=== PATIENT | male | born 1965 | race Caucasian/White ===

== ENCOUNTER 2021-05-28 17:27 | Outpatient (CLI) | payer OTHER, SELFPAY ==
--- NOTE | ~2021-05-28 | XR_ITS ---
EXAMINATION: XR knee LT min 4V DATE: 05/28/2021 17:57 INDICATION: Left knee pain TECHNIQUE: Weight bearing anteroposterior and Michel, sunrise, and flexed lateral views of the lef t knee were obtained COMPARISON: None. FINDINGS: Severe joint space narrowing in the medial compartment of the right knee with remodeling of the artic ular cortices of the medial femoral condyle and medial tibial plateau. This results in mild genu varu s. Small marginal osteophytes with relatively preserved joint spaces in the lateral and patellofemora l compartments. No fracture. Soft tissues are unremarkable with no knee joint effusion. IMPRESSION: 1. 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 Reviewed, dictated and finalized at location A.
== END 2021-05-28 17:28 ==
PROVIDERS: PCP Family Medicine; Visit Provider Physician Assistant
DX: M25.569 Pain in unspecified knee (principal); M17.12 Unilateral primary osteoarthritis, left knee; M21.162 Varus deformity, not elsewhere classified, left knee
CPT/HCPCS: 73564

== ENCOUNTER 2021-08-12 17:58 | Emergency (ER) | payer OTHER, SELFPAY ==
[2021-08-12 18:06] VITALS: BP 157/82; PULSE 96; RESP 16; TEMP 36.3; O2SAT 98
--- NOTE | 2021-08-12 18:06 | ED.DENTAL ---
HPI - Dental/Oral General Chief complaint: Dental/Oral Stated complaint: toothache Time Seen by Provider: 08/12/21 18:06 Source: patient and RN notes reviewed Mode of arrival: ambulatory Limitations: no limitations History of Present Illness HPI Narrative: 56-year-old male presents to the [facility] with complaints of dental pain swelling to the right lower jaw. States has been there for several days. No past dental care quite a few years, patient guesses approximately 20. Patient is a smoker. Very poor dental hygiene Related Data Allergies Allergy/AdvReac Type Severity Reaction Status Date / Time No Known Allergies Allergy Verified 05/28/21 16:36 Review of Systems Review of Systems: All systems reviewed & are unremarkable except as noted in HPI and below Constitutional: Constitutional: Reports no additional constitutional complaints, Denies chills and Denies fever(s) Eyes: Eyes: Reports no additional eye complaints ENT: Reports as per HPI Comments: Dental pain Cardiovascular: Cardiovascular: Reports no additional cardiovascular complaints and Denies chest pain Respiratory: Respiratory: Reports no additional respiratory complaints Musculoskeletal: Musculoskeletal: Reports no additional musculoskeletal complaints Integumentary/Breasts: Skin/Breast: Reports system reviewed and no additional complaints, except as docu Neurologic: Reports system reviewed and no additional complaints, except as documented Psychiatric: Psychiatric: Reports no additional psychiatric complaints Allergic/Immunologic: Allergic/Immunologic: Reports no additional allergic/immunologic complaints PMFSH Surgical History Surgical History H/O arthroscopic knee surgery History of back surgery Social History Social History Smoking packs per day: 1 Smoking cigarettes per day: 20.0 Years smoked: 30 Smoking pack-years: 30.00 Smoking status: Heavy tobacco smoker Second hand tobacco smoke exposure: Yes Alcohol intake: never Substance use: current Substance use type: marijuana Other substance usage details: for pain relief Last use: 05/15/2021 Comments At the time of my signature, I reviewed and agree with the nursing past medical, surgical, social, and family history. There is no relevant family history pertinent to the patient complaint. Exam Const: General: no acute distress, alert and poor hygiene Nutritional Appearance: well nourished Orientation/consciousness: patient oriented x3 HENMT: Head: normal to inspection Ears: external ears normal, TM's normal bilaterally and EAC's normal General nose exam: Normal external nose present Teeth image: 1. Decayed tooth. Most molars are missing. Surrounding tissue red and inflamed. Pus coming from between the tooth and the gumline Neck: Neck: normal visual inspection, no lymphadenopathy and no meningeal signs Chest: Chest palpation & inspection: normal inspection of the chest Resp: Effort & Inspection: normal respiratory effort and no use of accessory muscles Auscultation: clear to auscultation bilaterally, no crackles, no rales, no rhonchi and no wheezes Cardio: Rate: regular rate Rhythm: regular rhythm Back/Spine/Pelvis: Back: no CVA tenderness Skin: General skin exam: normal color Rashes: no rashes Wounds: no wounds Neuro: General: patient oriented x3, moves all extremities, no meningeal signs and no focal motor deficits Speech: normal speech Gait exam (Neuro): Normal gait present Extrem: General: normal to inspection Psych: Appearance: grossly normal Mental Status: mental status grossly normal Affect: normal affect Attitude: cooperative Thought content: Yes Normal thought content present Course Course Emergency Course: Discharge instructions reviewed with patient, as well as provided in writing per nursing staff. The instructions also include
== END 2021-08-12 18:17 | disposition home or self-care (01) ==
PROVIDERS: Emergency Provider Nurse Practitioner; PCP Family Medicine
DX: K04.7 Periapical abscess without sinus (principal); F17.210 Nicotine dependence, cigarettes, uncomplicated
CPT/HCPCS: 99213; G0463

== ENCOUNTER 2021-12-24 11:34 | Outpatient (CLI) | payer OTHER, SELFPAY ==
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
== END 2021-12-24 11:35 ==
LOC: MICIMG 11:35
PROVIDERS: Visit Provider Family Medicine
DX: R05.9 Cough, unspecified (principal); R91.8 Other nonspecific abnormal finding of lung field
CPT/HCPCS: 71046

== ENCOUNTER 2025-01-09 12:36 | Outpatient (CLI) | payer MEDICAID, SELFPAY ==
--- NOTE | ~2025-01-09 | CT_ITS ---
CT Scan of the Chest without Contrast: Clinical Indication: Lung cancer screening, nicotine dependence Technique: Contiguous sections were acquired throughout the chest without intravenous contrast. Dose reduction technique was used on this scan by utilizing automated exposure control and iterative recon struction technique. The dose-length product (DLP) was 118.41 mGy-cm. Findings: There is no evidence of any significant mediastinal, hilar or axillary lymphadenopathy. There are mil d coronary artery calcifications. Calcified left hilar lymph nodes are present.. There is no evidence of pleural or pericardial effusion. Advanced emphysema present with mild biapical scarring. There is 3 mm apical pulmonary nodule (axial image 25). There are a few subcentimeter scattered irregular peripheral nodules in the left upper lob e, most likely benign. Images through the upper abdomen reveal no abnormalities. Impression: Lung RADS 2: Benign appearance. 12 month follow-up screening CT advised. Advanced emphysema. Reviewed, dictated and finalized at [facility]. [facility] Impression: Lung RADS 2: Benign appearance. 12 month follow-up screening CT advised. Advanced emphysema.
--- OUTSIDE RECORDS SUMMARY | 2025-01-09 14:13 | XMS_ITS | Referral Summary ---
Author Organization [facility] Address [address] [place] [address] Care Team Providers Care Water Supervisor Name Role Phone Brandi Lopez MD Primary Care Provider [phone] Source Comments [facility],non-owned Affiliates and Associated Physician Practices is amultiple site organization consisting of ambulatory clinics and hospital sitesin [place], [place] and [place]. This disclosure is being madepursuant to the Care Everywhere program and may not contain all information available regarding this patient. Last updated [email or web address] Allergies No known active allergies Medications * Be aware that medications may not be up to date on this document. Alwaysverify current medications with the patient. Medication Sig Dispensed Refills Start Date End Date Status fluticasone propionate (FLONASE) 50 MCG/ACT nasal sprayIndications:Ac yolis non-recurrent maxillary sinusitis [place] 1 [place] into each nostril 2 times daily 1 Bottle 0 08/02/2016 Active Additional Information Patient not taking.Reported on 12/30/2023 clobetasol (Temovate) 0.05 % cream APPLY TO HANDS TWICE A DAY FOR UP TO 2 WEEKS AT A TIME. 12/13/2023 Active doxycycline hyclate (Vibramycin) 100 MG capsule TAKE 1 CAPSULE BY MOUTH TWICE A DAY WITH FOOD 12/13/2023 Active terbinafine (LamISIL) 250 MG tablet TAKE ONE TABLET ONCE DAILY FOR 6 WEEKS. 12/13/2023 Active Social History Tobacco Use Types Packs/Day Years Used Date Smoking Tobacco: Every Day Tobacco Cessation:Ready to Q uit: Not Asked; Counseling Given: Not Answered Alcohol Use Standard Drinks/Week Comments Not Asked 0 (1 standard drink = 0.6 oz pur e alcohol) PHQ-2 Answer Date Recorded Patient Health Questionnaire-2 Score 0 12/30/2023 Sex and Gender Information Value Date Recorded Sex Assigned at Not on file Gender Identity Not on file Sexual Orientation Not on file Last Filed Vital Signs Vital Sign Reading Time Taken Comments Blood Pressure 110/68 08/02/2016 12:57 PM CDT Pulse 68 08/02/2016 12:57 PM CDT Temperature 36.8 C (98.2 F) 08/02/2016 12:57 PM CDT Respiratory Rate 16 08/02/2016 12:57 PM CDT Oxygen Saturation - - Inhaled Oxygen Concentration - - Weight 77.1 kg (170 lb) 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
--- OUTSIDE RECORDS SUMMARY | 2025-01-09 14:13 | XMS_ITS | Clinical Summary ---
Author Organization [facility] Address [address] [place] [address] Care Team Providers Care Litigator Name Role Phone Brandi Lopez MD Primary Care Provider [phone] Source Comments [facility],non-owned Affiliates and Associated Physician Practices is amultiple site organization consisting of ambulatory clinics and hospital sitesin [place], [place], [place] and [place]. This disclosure is being madepursuant to the Care Everywhere program and may not contain all information available regarding this patient. Last updated [facility] Allergies No known active allergies Medications * Be aware that medications may not be up to date on this document. Alwaysverify current medications with the patient. 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 Height - - Body Mass Index - - Plan of Treatment Health Maintenance Due Date Last Done Comments COLOGUARD (AGES 45-75) - COL ON CA SCREENING 1965 COLON MONITORING 1965 COLONOSCOPY - COLON CA SCREENING 1965 CT COLONOGRAPHY - COLON CA SCREENING 1965 Colorectal Cancer Screening 1965 FIT - COLON CA SCREENING 1965 FLEX SIG - COLON CA SCREENING 1965 LIPID TESTING 1965 HIV SCREENING 1980 HEPATITIS C SCREENING 07/16/1983 DTAP/TDAP/TD VACCINES (1 - Tdap) 1984 HEPATITIS B VACCINE (1 of 3 - 19+ 3-dose series) 1984 PNEUMOCOCCAL VACCINE 50+ (1 of 2 - PCV) 1984 PNEUMOCOCCAL VACCINE (1 of 2 - PCV) 1984 ZOSTER VACCINE (1 of 2) 2015 COVID-19 VACCINE ( - 2023-2 5 season) 2024 INFLUENZA VACCINE (#1) 2024 DEPRESSION SCREENING 11/15/2024 12/30/2023 HIB VACCINE Aged Out No longer eligi ble based on patient's age to complete this topic HPV VACCINE Aged Out No longer eligi ble based on patient's age to complete this topic MENINGOCOCCAL (Group B) VACCINE Aged Out No longer eligible based on patient's age to complete this topic MENINGOCOCCAL VACCINE Aged Out No nayeli michael eligible based on patient's age to complete this topic Care Teams Litigator Relationship Specialty Start Date End Date Brandi Lopez MD [address] [place] [address] PCP - General 05/26/22
--- OUTSIDE RECORDS SUMMARY | 2025-01-09 14:13 | XMS_ITS | CONTINUITY OF CARE DOCUMENT ---
Author Name judith wong Address Unknown Organization [facility] Address [address] [place] [address] Phone [phone] Care Team Providers Care Program Control Analyst Name Role Phone NADIRA BAY MD Unavailable [phone] NADIRA BAY MD Unavailable INSURANCE PROVIDERS Payer name Policy type / Coverage type Mellette red republican ID [facility] [id number]
--- OUTSIDE RECORDS SUMMARY | 2025-01-09 14:13 | XMS_ITS | Patient Health Summary ---
Author Organization [facility] [employer] Address [address] [place] [address] Care Team Providers Care Direct Chill Caster Name Role Phone Brandi Lopez MD Primary Care Provider [phone] Note from [facility],non-owned Affiliates and Associated Physician Practices is amultiple site organization consisting of ambulatory clinics and [place]in [place] and [place]. This disclosure is being madepursuant to the Care Everywhere program and may not contain all information available regarding this patient. Last updated 18.[facility] Allergies No known active allergies Medications * Be aware that medications may not be up to date on this document. Alwaysverify current medications with the patient. * fluticasone propionate (FLONASE) 50 MCG/ACT nasal spray(Started 08/02/2016) [place] 1 [place] into each nostril 2 times daily * clobetasol (Temovate) 0.05 % cream(Started 12/13/2023) APPLY TO HANDS TWICE A DAY FOR UP TO 2 WEEKS AT A TIME. * doxycycline hyclate (Vibramycin) 100 MG capsule(Started 12/13/2023) TAKE 1 CAPSULE BY MOUTH TWICE A DAY WITH FOOD * terbinafine (LamISIL) 250 MG tablet(Started 12/13/2023) TAKE ONE TABLET ONCE DAILY FOR 6 WEEKS. Social History Tobacco Use Types Packs/Day Years [...] 77.1 kg (170 lb) 12/30/2023 12:24 PM DISASTER RESPONSE DIRECTOR Height - - Body Mass Index - - Procedures * XR HAND LEFT 3VW OR MORE(Performed 12/30/2023) Performed for Bilateral hand pain * XR HAND RIGHT 3VW OR MORE(Performed 12/30/2023) Performed for Bilateral hand pain * XR WRIST RIGHT 3VW OR MORE(Performed 12/30/2023) Performed for Bilateral wrist pain * XR WRIST LEFT 3VW OR MORE(Performed 12/30/2023) Performed for Bilateral wrist pain Results * XR HAND LEFT 3VW OR MORE (12/30/2023 12:44 PM DISASTER RESPONSE DIRECTOR) Anatomical Region Laterality Modality Wrist / Hand Radiographic Steph ging 12/30/2023 2:57 PM DISASTER RESPONSE DIRECTOR Impressions 12/30/2023 9:08 PM DISASTER RESPONSE DIRECTOR IMPRESSION: 1.Right hand: Mild arthritis. 2.Left hand: Moderate to severe arthritis. 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 5.Soft tissue mass within the dorsal aspect of the wrist. Consider further characterization with cross-sectional imaging and/or ultrasound. Report dictated by George Martinez MD (sr vice president). I, Anastasiia Garcia MD have personally reviewed and interpreted this examination/study. > Interpreting Provider: Anastasiia Garcia MD on 12/30/2023 9:08 PM Narrative 12/30/2023 9:08 PM DISASTER RESPONSE DIRECTOR PROCEDURE: XR WRIST RIGHT 3VW OR MORE, XR HAND LEFT 3VW OR MORE, XR HAND RIGHT 3VW OR MORE, XR WRIST LEFT 3VW OR MORE, DATE/TIME OF EXAM: 12/30/2023 12:20 PM, LOCATION [facility] INDICATION: M25.531: Bilateral wrist pain M25.532: Bilateral wrist pain ADDITIONAL CLINICAL INFORMATION: Ordering Provider Reason For Exam: pain (accession [id number]), pain (accession [id number]), pain (accession [id number]), Pain (accession [id number]) COMPARISON: None. FINDINGS: Right hand: No acute fracture or dislocation. Mild degenerative changes are seen within the first carpometacarpal joint. There is mild narrowing of the first, third, and fourth, moderate narrowing of the fourth, and severe narrowing of the third metacarpophalangeal joints. Beaklike osteophytes noted from the third metacarpal head. There is associated subchondral sclerosis and osteophyte formation within the third metacarpophalangeal joint. There is narrowing of multiple interphalangeal joints, most pronounced within the first distal interphalangeal joint. No osseous erosive changes. Bone density and texture are normal. No soft tissue swelling. Left hand: No acute fracture or dislocation. Mild degenerative changes are seen within the first carpometacarpal joint. Beaklike osteophytes noted from the third metacarpal head. There is mild narrowing of the first and second as well as severe narrowing of the third metacarpal phalangeal joints. Associated subchondral sclerosis and osteophyte formation within the third metacarpal phalangeal joint. There is narrowing of the second distal interphalangeal joint. No osseous erosive changes. Bone density and texture are normal. No soft tissue swelling. Right wrist: No acute fracture or dislocation. A well-corticated ossific fragment within the dorsal wrist may represent a remote triquetral fracture. Widening of the scapholunate interval indicating scapholunate ligament injury associated with proximal migration of the capitate. Severe osteoarthritis changes at the radiocarpal joints with loss of joint space. 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 No osseous erosive changes. Bone density and texture are otherwise normal. A soft tissue swelling is seen along the dorsal wrist. Left wrist: No acute fracture or dislocation. Widening of the scapholunate interval indicating scapholunate ligament injury. A well-corticated lucency within the distal ulna may represent sequela of previous injury versus erosive changes. There is severe radial scaphoid, radial lunate, and ulnocarpal joint space narrowing with near txrh-mt-psgj contact and associated subchondral sclerosis. Bone density and texture are normal. No soft tissue swelling. Procedure Note Anastasiia Garcia MD - 12/30/2023 PROCEDURE: XR WRIST RIGHT 3VW OR MORE, XR HAND LEFT 3VW OR MORE, XRHAND RIGHT 3VW OR MORE, XR WRIST LEFT 3VW OR MORE, DATE/TIME OF EXAM:12/30/2023 12:20 PM, LOCATION [facility] INDICATION: M25.531: Bilateral wrist pain M25.532: Bilateral wrist pain ADDITIONAL CLINICAL INFORMATION: Ordering Provider Reason For Exam: pain (accession [id number]), pain (accession [id number]), pain (accession [id number]), Pain (accession [id number]) COMPARISON: None. FINDINGS: Right hand: No acute fracture or dislocation. Mild degenerative changes are seenwithin the first carpometacarpal joint. There is mild narrowing of the first, third, and fourth, moderate narrowing of the fourth, and severenarrowing of the third metacarpophalangeal joints. Beaklike osteophytes noted from the third metacarpal head. There is associated subchondral sclerosis and osteophyte formation within the third metacarpophalangeal joint. Thereis narrowing of multiple interphalangeal joints, most pronounced within the first distal interphalangeal joint. No osseous erosive changes. Bone density and texture are normal. No soft tissue swelling. Left hand: No acute fracture or dislocation. Mild degenerative changes are seenwithin the first carpometacarpal joint. Beaklike osteophytes noted from thethird metacarpal head. There is mild narrowing of the first and second as wellas severe narrowing of the third metacarpal phalangeal joints. Associated subchondral sclerosis and osteophyte formation within the thirdmetacarpal phalangeal joint. There is narrowing of the second distalinterphalangeal joint. No osseous erosive changes. Bone density and texture are normal.No soft tissue swelling. Right wrist: No acute fracture or dislocation. A well-corticated ossific fragmentwithin the dorsal wrist may represent a remote triquetral fracture. Widening of the scapholunate interval indicating scapholunate ligament injury associated with proximal migration of the capitate. Severeosteoarthritis changes at the radiocarpal joints with loss of joint space. 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 No osseous erosive changes. Bone density and texture are otherwise normal. A soft tissue swelling is seen along the dorsal wrist. Left wrist: No acute fracture or dislocation. Widening of the scapholunate interval indicating scapholunate ligament injury. A well-corticated lucencywithin the distal ulna may represent sequela of previous injury versus erosive changes. There is severe radial scaphoid, radial lunate, and ulnocarpal joint space narrowing with near cmjl-ob-zvxx contact and associated subchondral sclerosis. Bone density and texture are normal. No softtissue swelling. IMPRESSION: 1.Right hand: Mild arthritis. 2.Left hand: Moderate to severe arthritis. 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 5.Soft tissue mass within the dorsal aspect of the wrist. Considerfurther characterization with cross-sectional imaging and/or ultrasound. Report dictated by George Martinez MD (sr vice president). I, Anastasiia Garcia MD have personally reviewed and interpreted this examination/study. > Interpreting Provider: Anastasiia Garcia MD on 49:08 PM Du Hall MD DIAGNOSTIC IMAGING O RDERABLES * XR HAND RIGHT 3VW OR MORE (12/30/2023 12:44 PM DISASTER RESPONSE DIRECTOR) Anatomical Region Laterality Modality Wrist / Hand Radiographic Steph ging 12/30/2023 2:57 PM DISASTER RESPONSE DIRECTOR Impressions 12/30/2023 9:08 PM DISASTER RESPONSE DIRECTOR IMPRESSION: 1.Right hand: Mild arthritis. 2.Left hand: Moderate to severe arthritis. 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 5.Soft tissue mass within the dorsal aspect of the wrist. Consider further characterization with cross-sectional imaging and/or ultrasound. Report dictated by George Martinez MD (sr vice president). I, Anastasiia Garcia MD have personally reviewed and interpreted this examination/study. > Interpreting Provider: Anastasiia Garcia MD on 12/30/2023 9:08 PM Narrative 12/30/2023 9:08 PM DISASTER RESPONSE DIRECTOR PROCEDURE: XR WRIST RIGHT 3VW OR MORE, XR HAND LEFT 3VW OR MORE, XR HAND RIGHT 3VW OR MORE, XR WRIST LEFT 3VW OR MORE, DATE/TIME OF EXAM: 12/30/2023 12:20 PM, LOCATION [facility] INDICATION: M25.531: Bilateral wrist pain M25.532: Bilateral wrist pain ADDITIONAL CLINICAL INFORMATION: Ordering Provider Reason For Exam: pain (accession [id number]), pain (accession [id number]), pain (accession [id number]), Pain (accession [id number]) COMPARISON: None. FINDINGS: Right hand: No acute fracture or dislocation. Mild degenerative changes are seen within the first carpometacarpal joint. There is mild narrowing of the first, third, and fourth, moderate narrowing of the fourth, and severe narrowing of the third metacarpophalangeal joints. Beaklike osteophytes noted from the third metacarpal head. There is associated subchondral sclerosis and osteophyte formation within the third metacarpophalangeal joint. There is narrowing of multiple interphalangeal joints, most pronounced within the first distal interphalangeal joint. No osseous erosive changes. Bone density and texture are normal. No soft tissue swelling. Left hand: No acute fracture or dislocation. Mild degenerative changes are seen within the first carpometacarpal joint. Beaklike osteophytes noted from the third metacarpal head. There is mild narrowing of the first and second as well as severe narrowing of the third metacarpal phalangeal joints. Associated subchondral sclerosis and osteophyte formation within the third metacarpal phalangeal joint. There is narrowing of the second distal interphalangeal joint. No osseous erosive changes. Bone density and texture are normal. No soft tissue swelling. Right wrist: No acute fracture or dislocation. A well-corticated ossific fragment within the dorsal wrist may represent a remote triquetral fracture. Widening of the scapholunate interval indicating scapholunate ligament injury associated with proximal migration of the capitate. Severe osteoarthritis changes at the radiocarpal joints with loss of joint space. 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 No osseous erosive changes. Bone density and texture are otherwise normal. A soft tissue swelling is seen along the dorsal wrist. Left wrist: No acute fracture or dislocation. Widening of the scapholunate interval indicating scapholunate ligament injury. A well-corticated lucency within the distal ulna may represent sequela of previous injury versus erosive changes. There is severe radial scaphoid, radial lunate, and ulnocarpal joint space narrowing with near onmt-pe-ovvz contact and associated subchondral sclerosis. Bone density and texture are normal. No soft tissue swelling. Procedure Note Anastasiia Garcia MD - 12/30/2023 PROCEDURE: XR WRIST RIGHT 3VW OR MORE, XR HAND LEFT 3VW OR MORE, XRHAND RIGHT 3VW OR MORE, XR WRIST LEFT 3VW OR MORE, DATE/TIME OF EXAM:12/30/2023 12:20 PM, LOCATION [facility] INDICATION: M25.531: Bilateral wrist pain M25.532: Bilateral wrist pain ADDITIONAL CLINICAL INFORMATION: Ordering Provider Reason For Exam: pain (accession [id number]), pain (accession [id number]), pain (accession [id number]), Pain (accession [id number]) COMPARISON: None. FINDINGS: Right hand: No acute fracture or dislocation. Mild degenerative changes are seenwithin the first carpometacarpal joint. There is mild narrowing of the first, third, and fourth, moderate narrowing of the fourth, and severenarrowing of the third metacarpophalangeal joints. Beaklike osteophytes noted from the third metacarpal head. There is associated subchondral sclerosis and osteophyte formation within the third metacarpophalangeal joint. Thereis narrowing of multiple interphalangeal joints, most pronounced within the first distal interphalangeal joint. No osseous erosive changes. Bone density and texture are normal. No soft tissue swelling. Left hand: No acute fracture or dislocation. Mild degenerative changes are seenwithin the first carpometacarpal joint. Beaklike osteophytes noted from thethird metacarpal head. There is mild narrowing of the first and second as wellas severe narrowing of the third metacarpal phalangeal joints. Associated subchondral sclerosis and osteophyte formation within the thirdmetacarpal phalangeal joint. There is narrowing of the second distalinterphalangeal joint. No osseous erosive changes. Bone density and texture are normal.No soft tissue swelling. Right wrist: No acute fracture or dislocation. A well-corticated ossific fragmentwithin the dorsal wrist may represent a remote triquetral fracture. Widening of the scapholunate interval indicating scapholunate ligament injury associated with proximal migration of the capitate. Severeosteoarthritis changes at the radiocarpal joints with loss of joint space. 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 No osseous erosive changes. Bone density and texture are otherwise normal. A soft tissue swelling is seen along the dorsal wrist. Left wrist: No acute fracture or dislocation. Widening of the scapholunate interval indicating scapholunate ligament injury. A well-corticated lucencywithin the distal ulna may represent sequela of previous injury versus erosive changes. There is severe radial scaphoid, radial lunate, and ulnocarpal joint space narrowing with near xqwh-cy-nslp contact and associated subchondral sclerosis. Bone density and texture are normal. No softtissue swelling. IMPRESSION: 1.Right hand: Mild arthritis. 2.Left hand: Moderate to severe arthritis. 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 5.Soft tissue mass within the dorsal aspect of the wrist. Considerfurther characterization with cross-sectional imaging and/or ultrasound. Report dictated by George Martinez MD (sr vice president). I, Anastasiia Garcia MD have personally reviewed and interpreted this examination/study. > Interpreting Provider: Anastasiia Garcia MD on 49:08 PM Du Hall MD DIAGNOSTIC IMAGING O RDERABLES * XR WRIST RIGHT 3VW OR MORE (12/30/2023 12:19 PM DISASTER RESPONSE DIRECTOR) Anatomical Region Laterality Modality Wrist / Hand Radiographic Steph ging 12/30/2023 2:57 PM DISASTER RESPONSE DIRECTOR Impressions 12/30/2023 9:08 PM DISASTER RESPONSE DIRECTOR IMPRESSION: 1.Right hand: Mild arthritis. 2.Left hand: Moderate to severe arthritis. 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 5.Soft tissue mass within the dorsal aspect of the wrist. Consider further characterization with cross-sectional imaging and/or ultrasound. Report dictated by George Martinez MD (sr vice president). I, Anastasiia Garcia MD have personally reviewed and interpreted this examination/study. > Interpreting Provider: Anastasiia Garcia MD on 12/30/2023 9:08 PM Narrative 12/30/2023 9:08 PM DISASTER RESPONSE DIRECTOR PROCEDURE: XR WRIST RIGHT 3VW OR MORE, XR HAND LEFT 3VW OR MORE, XR HAND RIGHT 3VW OR MORE, XR WRIST LEFT 3VW OR MORE, DATE/TIME OF EXAM: 12/30/2023 12:20 PM, LOCATION [facility] INDICATION: M25.531: Bilateral wrist pain M25.532: Bilateral wrist pain ADDITIONAL CLINICAL INFORMATION: Ordering Provider Reason For Exam: pain (accession [id number]), pain (accession [id number]), pain (accession [id number]), Pain (accession [id number]) COMPARISON: None. FINDINGS: Right hand: No acute fracture or dislocation. Mild degenerative changes are seen within the first carpometacarpal joint. There is mild narrowing of the first, third, and fourth, moderate narrowing of the fourth, and severe narrowing of the third metacarpophalangeal joints. Beaklike osteophytes noted from the third metacarpal head. There is associated subchondral sclerosis and osteophyte formation within the third metacarpophalangeal joint. There is narrowing of multiple interphalangeal joints, most pronounced within the first distal interphalangeal joint. No osseous erosive changes. Bone density and texture are normal. No soft tissue swelling. Left hand: No acute fracture or dislocation. Mild degenerative changes are seen within the first carpometacarpal joint. Beaklike osteophytes noted from the third metacarpal head. There is mild narrowing of the first and second as well as severe narrowing of the third metacarpal phalangeal joints. Associated subchondral sclerosis and osteophyte formation within the third metacarpal phalangeal joint. There is narrowing of the second distal interphalangeal joint. No osseous erosive changes. Bone density and texture are normal. No soft tissue swelling. Right wrist: No acute fracture or dislocation. A well-corticated ossific fragment within the dorsal wrist may represent a remote triquetral fracture. Widening of the scapholunate interval indicating scapholunate ligament injury associated with proximal migration of the capitate. Severe osteoarthritis changes at the radiocarpal joints with loss of joint space. 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 No osseous erosive changes. Bone density and texture are otherwise normal. A soft tissue swelling is seen along the dorsal wrist. Left wrist: No acute fracture or dislocation. Widening of the scapholunate interval indicating scapholunate ligament injury. A well-corticated lucency within the distal ulna may represent sequela of previous injury versus erosive changes. There is severe radial scaphoid, radial lunate, and ulnocarpal joint space narrowing with near cppb-lw-wgti contact and associated subchondral sclerosis. Bone density and texture are normal. No soft tissue swelling. Procedure Note Anastasiia Garcia MD - 12/30/2023 PROCEDURE: XR WRIST RIGHT 3VW OR MORE, XR HAND LEFT 3VW OR MORE, XRHAND RIGHT 3VW OR MORE, XR WRIST LEFT 3VW OR MORE, DATE/TIME OF EXAM:12/30/2023 12:20 PM, LOCATION [facility] INDICATION: M25.531: Bilateral wrist pain M25.532: Bilateral wrist pain ADDITIONAL CLINICAL INFORMATION: Ordering Provider Reason For Exam: pain (accession [id number]), pain (accession [id number]), pain (accession [id number]), Pain (accession [id number]) COMPARISON: None. FINDINGS: Right hand: No acute fracture or dislocation. Mild degenerative changes are seenwithin the first carpometacarpal joint. There is mild narrowing of the first, third, and fourth, moderate narrowing of the fourth, and severenarrowing of the third metacarpophalangeal joints. Beaklike osteophytes noted from the third metacarpal head. There is associated subchondral sclerosis and osteophyte formation within the third metacarpophalangeal joint. Thereis narrowing of multiple interphalangeal joints, most pronounced within the first distal interphalangeal joint. No osseous erosive changes. Bone density and texture are normal. No soft tissue swelling. Left hand: No acute fracture or dislocation. Mild degenerative changes are seenwithin the first carpometacarpal joint. Beaklike osteophytes noted from thethird metacarpal head. There is mild narrowing of the first and second as wellas severe narrowing of the third metacarpal phalangeal joints. Associated subchondral sclerosis and osteophyte formation within the thirdmetacarpal phalangeal joint. There is narrowing of the second distalinterphalangeal joint. No osseous erosive changes. Bone density and texture are normal.No soft tissue swelling. Right wrist: No acute fracture or dislocation. A well-corticated ossific fragmentwithin the dorsal wrist may represent a remote triquetral fracture. Widening of the scapholunate interval indicating scapholunate ligament injury associated with proximal migration of the capitate. Severeosteoarthritis changes at the radiocarpal joints with loss of joint space. 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 No osseous erosive changes. Bone density and texture are otherwise normal. A soft tissue swelling is seen along the dorsal wrist. Left wrist: No acute fracture or dislocation. Widening of the scapholunate interval indicating scapholunate ligament injury. A well-corticated lucencywithin the distal ulna may represent sequela of previous injury versus erosive changes. There is severe radial scaphoid, radial lunate, and ulnocarpal joint space narrowing with near qqum-dv-oopr contact and associated subchondral sclerosis. Bone density and texture are normal. No softtissue swelling. IMPRESSION: 1.Right hand: Mild arthritis. 2.Left hand: Moderate to severe arthritis. 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 5.Soft tissue mass within the dorsal aspect of the wrist. Considerfurther characterization with cross-sectional imaging and/or ultrasound. Report dictated by George Martinez MD (sr vice president). Anastsaiia Solis MD have personally reviewed and interpreted this examination/study. > Interpreting Provider: Anastasiia Garcia MD on 49:08 PM Du aHll MD DIAGNOSTIC IMAGING O RDERABLES * XR WRIST LEFT 3VW OR MORE (12/30/2023 12:19 PM DISASTER RESPONSE DIRECTOR) Anatomical Region Laterality Modality Wrist / Hand Radiographic Steph ging 12/30/2023 2:57 PM DISASTER RESPONSE DIRECTOR Impressions 12/30/2023 9:08 PM DISASTER RESPONSE DIRECTOR IMPRESSION: 1.Right hand: Mild arthritis. 2.Left hand: Moderate to severe arthritis. 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 5.Soft tissue mass within the dorsal aspect of the wrist. Consider further characterization with cross-sectional imaging and/or ultrasound. Report dictated by George Martinez MD (sr vice president). Anastasiia Solis MD have personally reviewed and interpreted this examination/study. > Interpreting Provider: Anastasiia Garcia MD on 12/30/2023 9:08 PM Narrative 12/30/2023 9:08 PM DISASTER RESPONSE DIRECTOR PROCEDURE: XR WRIST RIGHT 3VW OR MORE, XR HAND LEFT 3VW OR MORE, XR HAND RIGHT 3VW OR MORE, XR WRIST LEFT 3VW OR MORE, DATE/TIME OF EXAM: 12/30/2023 12:20 PM, LOCATION [facility] INDICATION: M25.531: Bilateral wrist pain M25.532: Bilateral wrist pain ADDITIONAL CLINICAL INFORMATION: Ordering Provider Reason For Exam: pain (accession [id number]), pain (accession [id number]), pain (accession [id number]), Pain (accession [id number]) COMPARISON: None. FINDINGS: Right hand: No acute fracture or dislocation. Mild degenerative changes are seen within the first carpometacarpal joint. There is mild narrowing of the first, third, and fourth, moderate narrowing of the fourth, and severe narrowing of the third metacarpophalangeal joints. Beaklike osteophytes noted from the third metacarpal head. There is associated subchondral sclerosis and osteophyte formation within the third metacarpophalangeal joint. There is narrowing of multiple interphalangeal joints, most pronounced within the first distal interphalangeal joint. No osseous erosive changes. Bone density and texture are normal. No soft tissue swelling. Left hand: No acute fracture or dislocation. Mild degenerative changes are seen within the first carpometacarpal joint. Beaklike osteophytes noted from the third metacarpal head. There is mild narrowing of the first and second as well as severe narrowing of the third metacarpal phalangeal joints. Associated subchondral sclerosis and osteophyte formation within the third metacarpal phalangeal joint. There is narrowing of the second distal interphalangeal joint. No osseous erosive changes. Bone density and texture are normal. No soft tissue swelling. Right wrist: No acute fracture or dislocation. A well-corticated ossific fragment within the dorsal wrist may represent a remote triquetral fracture. Widening of the scapholunate interval indicating scapholunate ligament injury associated with proximal migration of the capitate. Severe osteoarthritis changes at the radiocarpal joints with loss of joint space. 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 No osseous erosive changes. Bone density and texture are otherwise normal. A soft tissue swelling is seen along the dorsal wrist. Left wrist: No acute fracture or dislocation. Widening of the scapholunate interval indicating scapholunate ligament injury. A well-corticated lucency within the distal ulna may represent sequela of previous injury versus erosive changes. There is severe radial scaphoid, radial lunate, and ulnocarpal joint space narrowing with near xgrf-hq-edyz contact and associated subchondral sclerosis. Bone density and texture are normal. No soft tissue swelling. Procedure Note Anastasiia Garcia MD - 12/30/2023 PROCEDURE: XR WRIST RIGHT 3VW OR MORE, XR HAND LEFT 3VW OR MORE, XRHAND RIGHT 3VW OR MORE, XR WRIST LEFT 3VW OR MORE, DATE/TIME OF EXAM:12/30/2023 12:20 PM, LOCATION [facility] INDICATION: M25.531: Bilateral wrist pain M25.532: Bilateral wrist pain ADDITIONAL CLINICAL INFORMATION: Ordering Provider Reason For Exam: pain (accession [id number]), pain (accession [id number]), pain (accession [id number]), Pain (accession [id number]) COMPARISON: None. FINDINGS: Right hand: No acute fracture or dislocation. Mild degenerative changes are seenwithin the first carpometacarpal joint. There is mild narrowing of the first, third, and fourth, moderate narrowing of the fourth, and severenarrowing of the third metacarpophalangeal joints. Beaklike osteophytes noted from the third metacarpal head. There is associated subchondral sclerosis and osteophyte formation within the third metacarpophalangeal joint. Thereis narrowing of multiple interphalangeal joints, most pronounced within the first distal interphalangeal joint. No osseous erosive changes. Bone density and texture are normal. No soft tissue swelling. Left hand: No acute fracture or dislocation. Mild degenerative changes are seenwithin the first carpometacarpal joint. Beaklike osteophytes noted from thethird metacarpal head. There is mild narrowing of the first and second as wellas severe narrowing of the third metacarpal phalangeal joints. Associated subchondral sclerosis and osteophyte formation within the thirdmetacarpal phalangeal joint. There is narrowing of the second distalinterphalangeal joint. No osseous erosive changes. Bone density and texture are normal.No soft tissue swelling. Right wrist: No acute fracture or dislocation. A well-corticated ossific fragmentwithin the dorsal wrist may represent a remote triquetral fracture. Widening of the scapholunate interval indicating scapholunate ligament injury associated with proximal migration of the capitate. Severeosteoarthritis changes at the radiocarpal joints with loss of joint space. 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 No osseous erosive changes. Bone density and texture are otherwise normal. A soft tissue swelling is seen along the dorsal wrist. Left wrist: No acute fracture or dislocation. Widening of the scapholunate interval indicating scapholunate ligament injury. A well-corticated lucencywithin the distal ulna may represent sequela of previous injury versus erosive changes. There is severe radial scaphoid, radial lunate, and ulnocarpal joint space narrowing with near qnpi-ra-ezpv contact and associated subchondral sclerosis. Bone density and texture are normal. No softtissue swelling. IMPRESSION: 1.Right hand: Mild arthritis. 2.Left hand: Moderate to severe arthritis. 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 5.Soft tissue mass within the dorsal aspect of the wrist. Considerfurther characterization with cross-sectional imaging and/or ultrasound. Report dictated by George Martinez MD (sr vice president). I, Anastasiia Garcia MD have personally reviewed and interpreted this examination/study. > Interpreting Provider: Anastasiia Garcia MD on 49:08 PM Du Hall MD DIAGNOSTIC IMAGING O [facility] Care Teams Direct Chill Caster Relationship Specialty Start Date End Date Brandi Lopez MD [address] [place] [address] PCP - General 05/26/22
--- OUTSIDE RECORDS SUMMARY | 2025-01-09 14:13 | XMS_ITS | Clinical Summary ---
Author Organization [facility] Address [facility] [place] [address] Care Team Providers Care Integration Aide Name Role Phone None, Provider MD Primary Care Provider Unavaila ble Allergies No known active allergies Medications ibuprofen 600 MG tablet Take 1 tablet (600 mg total) by mouth every 6 (six) hours as needed for Pain. 30 tablet 12/22/2021 Active HYDROcodone-jackie taminophen 5-325 MG tabletIndicatio ns:Acute Pain < 7 Day Supply Take 1 tablet by mouth every 6 (six) hours as needed for Pain. Indications: Acute Pain < 7 Day Supply 25 tablet 12/22/2021 Active lidocaine 5 % Place 1 patch onto the skin daily. Remove & Discard patch within 12 hours or as directed by MD 30 patch 12/22/2021 Active albuterol sulfate HFA 108 (90 Base) MCG/ACT inhaler Inhale 2 puffs into the lungs every 6 (six) hours as needed for Wheezing. 18 g 12/22/2021 Active Social History Tobacco Use Types Packs/Day Years Used Date Smoking Tobacco: Every Day Smokeless Tobacco: Never Alcohol Use Standard Drinks/Week Comments Yes 0 (1 standard drink = 0.6 oz pur e alcohol) Sex and Gender Information Value Date Recorded Sex Assigned at Not on file Legal Sex Male 8:04 PM OBGYN SPECIALIST Gender Identity Not on file Sexual Orientation Not on file Last Filed Vital Signs Vital Sign Reading Time Taken Comments Blood Pressure 108/64 12/22/2021 5:55 AM OBGYN SPECIALIST Pulse 82 12/22/2021 5:55 AM OBGYN SPECIALIST Temperature 36.6 C (97.9 F) 12/21/2021 8:05 PM OBGYN SPECIALIST Respiratory Rate 20 12/22/2021 5:55 AM OBGYN SPECIALIST Oxygen Saturation 98% 12/22/2021 5:55 AM OBGYN SPECIALIST Inhaled Oxygen Concentration - - Weight 72.6 kg (160 lb) 12/21/2021 8:05 PM OBGYN SPECIALIST Height 175.3 cm (5' 9 ) 12/21/2021 8:05 PM OBGYN SPECIALIST Body Mass Index 23.63 12/21/2021 8:05 PM OBGYN SPECIALIST Plan of Treatment Health Maintenance Due Date Last Done Comments Colorectal Cancer Screening Colonoscopy (10 Years) 1965 Annual Physical 1968 Pneumococcal Vaccine: Pediat rics (0 to 5 Years) and At-Risk Patients (6 to 64 Years) (1 of 2 - PCV) 1971 Hepatitis C 1983 DTaP, Tdap and Td Vaccines ( 1 - Tdap) 1984 Zoster Vaccines (1 of 2) 2015 COVID-19 Vaccine (1 - 2023-2 5 season) 2024 Influenza Adult (#1) 2024 Meningococcal B Vaccine Aged Out No l onger eligible based on patient's age to complete this topic Meningococcal Vaccine Aged Out No nayeli michael eligible based on patient's age to complete this topic RSV Immunizations Under 20 Months Aged Out No longer eligible based on patient's age to complete this topic Insurance [facility] Care Teams Integration Aide Relationship Specialty Start Date End Date None, Provider, PCP - General 12/21/21
--- OUTSIDE RECORDS SUMMARY | 2025-01-09 14:14 | XMS_ITS | Patient Health Record ---
Author Organization [facility] Address [address] [place] [address] Support Name Relationship Address Phone Jori Jimenez Jr Guarantor Unknown [phone] Reason For Referral No Information Plan Of Treatment No Information Insurance Providers Payer Name Payer Address Payer Phone Subscriber Number Group Number Insured Name Patient Relationship to Insured Coverage Start Date Coverage End Date [facility] [address] [place] [address] [id number] Jori Jimenez Jr Self - patient is the insured 5
--- OUTSIDE RECORDS SUMMARY | 2025-01-09 14:14 | XMS_ITS | Data Portability ---
Author Organization [place] [facility], Main Office Address [address] [place] [address] Care Team Providers Care Pack Changer Name Role Phone MIRA WALDRON Primary Care Provider [phone] MIRA WALDRON Referring Provider Assessment Encounter Date Assessment Date Assessment LastModified by Organization Details LastModified Time 05/08/2024 05/08/2024 This note is dictated and transcribed by [employer]. Visual Educator variances may occur. Despite proofreading, typographical errors may occur. Occasional wrong-word or '[id number]-d-[id number]' substitutions may have occurred due to the inherent limitations of voice recording. Read the chart carefully and recognize, using context, where substitutions have occurred. [email or web address] Not available 05/08/2024 15:50:00 Plan of Treatment Reminders Order Date Submit Date Provider Last Modified By Organization Details Last Modified Time Details Appointments None recorded. Lab None recorded. Referral None recorded. Procedures None recorded. Surgeries None recorded. Imaging None recorded. Medication Orders triamcinolo ne acetonide 0.1 % topical cream 2023 024 [facility] #[id number], [address] , [place], [address], 15:50:51 Patient TargetsNo targets recorded. Patient InstructionsNo instructions recorded. Reason for Referral None Reported. Results Created Date Observation Date Name Description Value Unit Range Abnormal Flag Note LastModifiedBy Organization Detail LastModifiedTime 01/14/20 22 12/21/2021 XR, wrist , 3 or more view No observ ation record ed. [id number] Not Available 01/13/2023 07:35:03 01/14/20 22 01/14/2022 XR, wrist , 3 or more view No observ ation record ed. [id number] [email or web address] [address], [place], [address], 01/13/2023 07:35:03 Result Notes None recorded. Problems Name Problem SNOMED Code Status Onset Date Resolution Date Notes Provider Name and Address Organization Details Recorded Time Osteoarthriti s 664042095 Active Not Available [facility] 07:29:35 Lichen planus 5552355 Active 2023 Francisco Mooney DPM [address] [place] [address], [place], [address] , [email or web address] 4 15:50:12 Onychomycosis of toenails 125195026 Active 2023 Francisco Mooney DPM [address], [place], [address] , [email or web address] 4 16:32:37 Problem Notes None recorded. Procedures Surgical History Date Name Laterality Status Provider Name and Address Organization Details Recorded Time Back Surgeries completed Nery Kelley [email or web address] 05/08/2024 15:31:19 procedure on knee completed Nery Kelley [email or web address] 05/08/2024 15:31:45 Imaging Results Imaging Date Name Status LastModified by Organiz ation Details LastModified Time 12/21/2021 XR, wrist, 3 or more view completed [id number] Information not available 01/13/2023 07:35:03 01/14/2022 XR, wrist, 3 or more view completed [id number] [email or web address] [address], [place], [address], 01/13/2023 07:35:03 Procedure Notes None recorded. Medical Equipment None Reported. Allergies No known drug allergies Medications Name Sig Start Date Stop Date Status Note LastModified by Organization Details LastModified Time prednisone 10 mg tablet PLEASE SEE ATTACHED FOR DETAILED DIRECTION S active Not Available Not Available No t Available doxycycline hyclate 100 mg capsule TAKE 1 CAPSULE BY MOUTH TWICE A DAY WITH FOOD active Not Available Not Available No t Available ibuprofen 800 mg tablet TK 1 T PO TID PRN P 11/05 completed Not Available Not Available Not Available ofloxacin 0.3 % eye drops INSTILL 1 DROP INTO AFFECTED EYE THREE TIMES A DAY DIRECTED TO BEGIN TWO DAYS PRIOR TO SURGERY active Not Available Not Available No t Available hydrocodone 5 mg-acetamin ophen 325 mg tablet TAKE 1 TABLET BY MOUTH EVERY 6 HOURS NEEDED FOR PAIN active Not Available Not Available No t Available flurbiprofe n 0.03 % eye drops INSTILL 1 DROP INTO THE SURGICAL EYE 3 TIMES DAILY. START 2 DAYS BEFORE SURGERY. CONTINUE X2 WEEKS active Not Available Not Available No t Available bupivacaine HCl 0.5 % (5 mg/mL) injection solution Take 2 mg by injection route. active Not Available Not Available No t Available lidocaine 4 % topical cream APPLY TOPICALLY TO AFFECTED AREAS TWICE DAILY NEEDED active Not Available Not Available No t Available clobetasol 0.05 % topical cream APPLY TO HANDS TWICE A DAY FOR UP TO 2 WEEKS AT A TIME active Not Available Not Available No t Available penicillin V potassium 500 mg tablet TAKE 1 TABLET BY MOUTH EVERY 12 HOURS FOR 10 DAYS 01/13 completed Not Available Not Available Not Available triamcinolo ne acetonide 0.1 % topical cream APPLY A THIN LAYER TO THE AFFECTED AREA(S) GREAT TOE BY TOPICAL ROUTE 2 TIMES PER DAY active Not Available Not Available No t Available ketorolac 0.5 % eye drops INSTILL 1 DROP INTO THE OPERATIVE EYE 3 TIMES DAILY BEGINNING 2 DAYS BEFORE SURGERY active Not Available Not Available No t Available oxycodone-a cetaminophe n 5 mg-325 mg tablet TAKE 1 TABLET BY MOUTH EVERY 6 HOURS NEEDED FOR PAIN active Not Available Not Available No t Available terbinafine HCl 250 mg tablet TAKE 1 TABLET BY MOUTH EVERY DAY FOR 6 WEEKS active Not Available Not Available No t Available prednisolon e acetate 1 % eye drops,suspe nsion INSTILL 1 DROP INTO THE SURGICAL EYE 3 TIMES DAILY. START AFTER SURGERY. CONTINUE X3 WEEKS active Not Available Not Available No t Available ciprofloxac in 0.3 % eye drops INSTILL 1 DROP INTO THE SURGICAL EYE 3 TIMES DAILY. START 2 DAYS BEFORE SURGERY. CONTINUE X1 WEEK active Not Available Not Available No t Available Kenalog 10 mg/mL suspension for injection In office injection administe red by the provider active ND: [id number] Not Available Not Available Not Available benzonatate 100 mg capsule TAKE 1 CAPSULE BY MOUTH EVERY 8 HOURS NEEDED FOR COUGH AND CONGESTIO N active Not Available Not Available No t Available triamcinolo ne acetonide 0.1 % topical ointment APPLY A THIN LAYER TO THE AFFECTED AREA(S) ON THE SKIN 2-3 TIMES DAILY FOR ITCHING active Not Available Not Available No t Available ropinirole 0.5 mg tablet 11/05 completed Not Available Not Available Not Available lidocaine 5 % topical patch APPLY 1 PATCH TO SKIN DAILY. REMOVE AND DISCARD PATCH WITHIN 12 HOURS OR DIRECTED BY MD active Not Available Not Available No t Available docusate sodium 100 mg capsule TAKE 1 CAPSULE BY MOUTH 2 TIMES A DAY NEEDED FOR CONSTIPAT ION active Not Available Not Available No t Available ibuprofen 600 mg tablet TAKE 1 TABLET BY MOUTH EVERY 6 HOURS NEEDED FOR PAIN active Not Available Not Available No t Available polyethylen e glycol 3350 17 gram/dose oral powder MIX 17 G WITH LIQUID PER PACKAGE INSTRUCTI ONS AND DRINK ONCE DAILY NEEDED FOR CONSTIPAT ION active Not Available Not Available No t Available levofloxaci n 500 mg tablet TAKE 1 TABLET BY MOUTH EVERY DAY FOR 10 DAYS active Not Available Not Available No t Available albuterol sulfate HFA 90 mcg/actuati on aerosol inhaler INHALE 2 PUFFS INTO THE LUNGS EVERY 6 HOURS NEEDED FOR WHEEZING active Not Available Not Available No t Available amoxicillin 875 mg-potassiu m clavulanate 125 mg tablet TAKE 1 ORAL TABLET 2 TIMES A DAY X 7 DAYS active Not Available Not Available No t Available ciclopirox 0.77 % topical suspension APPLY TO AFFECTED NAILS AT NIGHT BEFORE BED UNTIL CLEAR active Not Available Not Available No t Available Vitals Date Recorded Body mass index (BMI) Body height Pain severity - 0-10 verbal numeric rating [Score] - Reported Body weight Provider Name and Address Organization Details Last Updated DateTime 01/13/2022 28.1 kg/m2 175.26 cm 6 80921.55 g Not Available [facility] 01/13/2023 07:27:17 Date Recorded Body height Provider Name an d Address Organization Details Last Updated DateTime 05/08/2024 175.26 cm Nery DELANEY [place] [employer] [facility] 05/08/2024 15:28:30 Date Recorded Body mass index (BMI) Body weight Heart rate Respiratory rate Body temperature Oxygen saturation Oxygen saturation in Arterial blood by Pulse oximetry Systolic blood pressure Diastolic blood pressure Provider Name and Address Organization Details Last Updated DateTime 25.1 kg/m2 78969.7 g 80 /min 16 /min 97.2 [degF] 96 % 96 % 120 mm[Hg] 76 mm[Hg] Alecia Trotter [place] [facility] 15:33:52 Social History Question Answer Notes LastModified by Organizat ion Details LastModified Time Tobacco Smoking Status Current Every Day Smoker Not Available [facility] 01/13/2023 07:26:22 What Is Your Level Of Alcohol Consumption? None Information not available 05/08/2024 What Is Your Level Of Caffeine Consumption? Moderate Information not available 05/08/2024 What Was The Date Of Your Most Recent Tobacco Screening? 05/08/2024 Information not available 05/08/2024 Do You Use Any Illicit Or Recreational Drugs? No Information not available 05/08/2024 Has Tobacco Cessation Counseling Been Provided? No Information not available 05/08/2024 Sex: Unknown Functional Status None recorded. Mental Status None recorded. Family History Relationship Description Onset Age of this Age Resolved Age Notes LastModified by Organization Details LastModified Time Father Diabetes mellitus Not available 2023 15:29:10 Father Family history of stroke Not available 2023 15:29:33 Father Arthritis Not available 05/08/2024 15:30:33 Father Diabetes mellitus Not available 04/16 15:34:31 Mother Arthritis Not available 05/08/2024 15:30:33 Paternal Grandfather Heart disease Not available 2023 15:30:44 Medical History Condition Response ARTHRITIS Y BACK / NECK PROBLEMS Y Past Encounters Encounter ID Performer Location Encounter Start Date Encounter Closed Date Diagnosis/Indication Diagnosis SNOMED-CT Code Diagnosis ICD10 Code Diagnosis Note [id number] [facility] [address] [place] [address] 01/13/2022 00:00:00 01/13/2022 17:00:08 [id number] Francisco Mooney DPM [facility] [address] [place] [address] 05/08/2024 15:21:31 05/10/2024 11:52:56 Lichen planus 1310682 L43.9 right great toedebride d without incidentRx triamcinol one Onychomyco sis of toenails 216606482 B35.1 right 1-3discuss ed optionswil l plan for total nail avulsionma y continue use of topical over-the-c ounter medication Health Concerns Section Related Observation LastModified by Organization Detai ls LastModified Time None Recorded Concern Status LastModified by Organization Details LastModified Time None Recorded Advance Directives Directive None Recorded Payers Encounter Date Sequence Insurance Name Policy Number Policy Contreras Covered Member ID Contreras Member ID Guarantor Name 05/08/2024 1 [facility] ([place]) 000 Jori Jimenez [id number] Jori Jimenez Notes Date Note Type Note Provider Name and Address Organization Details Recorded Time 05/08/2024 text/html . Patient is 58-year-old male who presents the office with complaints of right toe issue that started on 04/15/2024. Patient states that he developed a macerated wound to the great toe secondary to using wet shoes for a long period time. Patient denies any signs of infection. Patient states his nails are also discolored and thickened states he can comfortably walk 2-4 blocks states his pain is 6/10 describes it as throbbing and aching in nature. Patient denies any redness, drainage or purulence from the area. Patient denies any fever, chills, nausea or vomiting. Francisco Mooney DPM [address], [place], [address], [facility] [employer] [facility] 05/09/2024 09:21:14
== END 2025-01-09 12:37 | disposition home or self-care (01) ==
PROVIDERS: PCP Family Medicine; Visit Provider Family Medicine
DX: Z12.2 Encounter for screening for malignant neoplasm of respiratory organs (principal); Z87.891 Personal history of nicotine dependence; J43.9 Emphysema, unspecified
CPT/HCPCS: 71271

== ENCOUNTER 2025-01-10 08:15 | Outpatient (CLI) | payer MEDICAID, SELFPAY ==
--- OUTSIDE RECORDS SUMMARY | 2025-01-10 08:27 | XMS_ITS | Clinical Summary ---
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 Gender Identity Not on file Sexual Orientation Not on file Last Filed Vital Signs Vital Sign Reading Time Taken Comments Blood Pressure 108/64 12/22/2021 5:55 AM HEAD BOYS GOLF COACH Pulse 82 12/22/2021 5:55 AM HEAD BOYS GOLF COACH Temperature 36.6 C (97.9 F) 12/21/2021 8:05 PM HEAD BOYS GOLF COACH Respiratory Rate 20 12/22/2021 5:55 AM HEAD BOYS GOLF COACH Oxygen Saturation 98% 12/22/2021 5:55 AM HEAD BOYS GOLF COACH Inhaled Oxygen Concentration - - Weight 72.6 kg (160 lb) 12/21/2021 8:05 PM HEAD BOYS GOLF COACH Height 175.3 cm (5' 9 ) 12/21/2021 8:05 PM HEAD BOYS GOLF COACH Body Mass Index 23.63 12/21/2021 8:05 PM HEAD BOYS GOLF COACH Plan of Treatment Health Maintenance Due Date [...] this topic Insurance [facility] Care Teams Director Global Sales Relationship Specialty Start Date End Date None, Provider, PCP - General 12/21/21
--- OUTSIDE RECORDS SUMMARY | 2025-01-10 08:27 | XMS_ITS | Clinical Summary ---
Author Organization [facility] Address [address] [place] [address] Care Team Providers Care Shear Helper Name Role Phone Brandi Lopez MD Primary Care Provider [phone] Source Comments [facility],non-owned Affiliates and Associated Physician Practices is amultiple site organization consisting of ambulatory clinics and hospital sitesin [place], [place], [place] and [place]. This disclosure is being madepursuant to the Care Everywhere program and may not contain all information available regarding this patient. Last updated 18.[facility] Allergies No known active allergies Medications * Be aware that medications may not be up to date on this document. Alwaysverify current medications with the patient. 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
--- OUTSIDE RECORDS SUMMARY | 2025-01-10 08:27 | XMS_ITS | Patient Health Summary ---
Author Organization [facility] Address [address] [place] [address] Care Team Providers Care Executive Producer Name Role Phone Brandi Lopez MD Primary Care Provider [phone] Note from [facility],non-owned Affiliates and Associated Physician Practices is amultiple site organization consisting of ambulatory clinics and hospital sitesin [place], [place], [place] and [place]. This disclosure is being madepursuant to the Care Everywhere program and may not contain all information available regarding this patient. Last updated 18.[facility] Allergies No known active allergies Medications * Be aware that medications may not be up to date on this document. Alwaysverify current medications with the patient. * fluticasone propionate (FLONASE) 50 MCG/ACT nasal spray(Started 08/02/2016) [place] 1 [place] into each nostril 2 times daily * [...] 77.1 kg (170 lb) 12/30/2023 12:24 PM FINANCIAL ADMINISTRATION OFFICER Height - - Body Mass Index - [...] LEFT 3VW OR MORE (12/30/2023 12:44 PM FINANCIAL ADMINISTRATION OFFICER) Anatomical Region Laterality Modality Wrist / Hand Radiographic Steph ging 12/30/2023 2:57 PM FINANCIAL ADMINISTRATION OFFICER Impressions 12/30/2023 9:08 PM FINANCIAL ADMINISTRATION OFFICER IMPRESSION: 1.Right hand: Mild arthritis. 2.Left hand: Moderate to severe arthritis. 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 5.Soft tissue mass within the dorsal aspect of the wrist. Consider further characterization with cross-sectional imaging and/or ultrasound. Report dictated by George Martinez MD (resident services supervisor). I, Anastasiia Garcia MD have personally reviewed and interpreted this examination/study. > Interpreting Provider: Anastasiia Garcia MD on 12/30/2023 9:08 PM Narrative 12/30/2023 9:08 PM FINANCIAL ADMINISTRATION OFFICER PROCEDURE: XR WRIST RIGHT 3VW OR MORE, XR HAND LEFT 3VW OR MORE, XR HAND RIGHT 3VW OR MORE, XR WRIST LEFT 3VW OR MORE, DATE/TIME OF EXAM: 12/30/2023 12:20 PM, LOCATION [facility] INDICATION: M25.531: Bilateral wrist pain M25.532: Bilateral wrist pain ADDITIONAL CLINICAL INFORMATION: Ordering Provider Reason For Exam: pain (accession [id number]), pain (accession [id number]), pain (accession [id number]), Pain (accession [id number]) COMPARISON: None. FINDINGS: Right hand: No acute [...] and ulnocarpal joint space narrowing with near kgtf-yl-pqtx contact and associated subchondral sclerosis. Bone density and texture are normal. No soft tissue swelling. Procedure Note Anastasiia Garcia MD - 12/30/2023 PROCEDURE: XR WRIST RIGHT 3VW OR MORE, XR HAND LEFT 3VW OR MORE, XRHAND RIGHT 3VW OR MORE, XR WRIST LEFT 3VW OR MORE, DATE/TIME OF EXAM:12/30/2023 12:20 PM, LOCATION [facility] INDICATION: M25.531: Bilateral wrist pain M25.532: Bilateral wrist pain ADDITIONAL CLINICAL INFORMATION: Ordering Provider Reason For Exam: pain (accession [id number]), pain (accession [id number]), pain (accession [id number]), Pain (accession [id number]) COMPARISON: None. FINDINGS: Right hand: No acute [...] and ulnocarpal joint space narrowing with near opuq-ux-btvu contact and associated subchondral sclerosis. Bone density [...] ultrasound. Report dictated by George Martinez MD (resident services supervisor). I, Anastasiia Garcia MD have personally reviewed and interpreted this examination/study. > Interpreting Provider: Anastasiia Garcia MD on 49:08 PM Du Hall MD DIAGNOSTIC IMAGING O RDERABLES * XR HAND RIGHT 3VW OR MORE (12/30/2023 12:44 PM FINANCIAL ADMINISTRATION OFFICER) Anatomical Region Laterality Modality Wrist / Hand Radiographic Steph ging 12/30/2023 2:57 PM FINANCIAL ADMINISTRATION OFFICER Impressions 12/30/2023 9:08 PM FINANCIAL ADMINISTRATION OFFICER IMPRESSION: 1.Right hand: Mild arthritis. 2.Left hand: Moderate to severe arthritis. 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 5.Soft tissue mass within the dorsal aspect of the wrist. Consider further characterization with cross-sectional imaging and/or ultrasound. Report dictated by George Martinez MD (resident services supervisor). I, Anastasiia Garcia MD have personally reviewed and interpreted this examination/study. > Interpreting Provider: Anastasiia Garcia MD on 12/30/2023 9:08 PM Narrative 12/30/2023 9:08 PM FINANCIAL ADMINISTRATION OFFICER PROCEDURE: XR WRIST RIGHT 3VW OR MORE, XR HAND LEFT 3VW OR MORE, XR HAND RIGHT 3VW OR MORE, XR WRIST LEFT 3VW OR MORE, DATE/TIME OF EXAM: 12/30/2023 12:20 PM, LOCATION [facility] INDICATION: M25.531: Bilateral wrist pain M25.532: Bilateral wrist pain ADDITIONAL CLINICAL INFORMATION: Ordering Provider Reason For Exam: pain (accession [id number]), pain (accession [id number]), pain (accession [id number]), Pain (accession [id number]) COMPARISON: None. FINDINGS: Right hand: No acute [...] and ulnocarpal joint space narrowing with near rocf-hj-clmp contact and associated subchondral sclerosis. Bone density and texture are normal. No soft tissue swelling. Procedure Note Anastasiia Garcia MD - 12/30/2023 PROCEDURE: XR WRIST RIGHT 3VW OR MORE, XR HAND LEFT 3VW OR MORE, XRHAND RIGHT 3VW OR MORE, XR WRIST LEFT 3VW OR MORE, DATE/TIME OF EXAM:12/30/2023 12:20 PM, LOCATION [facility] INDICATION: M25.531: Bilateral wrist pain M25.532: Bilateral wrist pain ADDITIONAL CLINICAL INFORMATION: Ordering Provider Reason For Exam: pain (accession [id number]), pain (accession [id number]), pain (accession [id number]), Pain (accession [id number]) COMPARISON: None. FINDINGS: Right hand: No acute [...] and ulnocarpal joint space narrowing with near uxfo-jw-eqxz contact and associated subchondral sclerosis. Bone density [...] ultrasound. Report dictated by George Martinez MD (resident services supervisor). I, Anastasiia Garcia MD have personally reviewed and interpreted this examination/study. > Interpreting Provider: Anastasiia Garcia MD on 49:08 PM Du Hall MD DIAGNOSTIC IMAGING O RDERABLES * XR WRIST RIGHT 3VW OR MORE (12/30/2023 12:19 PM FINANCIAL ADMINISTRATION OFFICER) Anatomical Region Laterality Modality Wrist / Hand Radiographic Steph ging 12/30/2023 2:57 PM FINANCIAL ADMINISTRATION OFFICER Impressions 12/30/2023 9:08 PM FINANCIAL ADMINISTRATION OFFICER IMPRESSION: 1.Right hand: Mild arthritis. 2.Left hand: Moderate to severe arthritis. 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 5.Soft tissue mass within the dorsal aspect of the wrist. Consider further characterization with cross-sectional imaging and/or ultrasound. Report dictated by George Martinez MD (resident services supervisor). I, Anastasiia Garcia MD have personally reviewed and interpreted this examination/study. > Interpreting Provider: Anastasiia Garcia MD on 12/30/2023 9:08 PM Narrative 12/30/2023 9:08 PM FINANCIAL ADMINISTRATION OFFICER PROCEDURE: XR WRIST RIGHT 3VW OR MORE, XR HAND LEFT 3VW OR MORE, XR HAND RIGHT 3VW OR MORE, XR WRIST LEFT 3VW OR MORE, DATE/TIME OF EXAM: 12/30/2023 12:20 PM, LOCATION [facility] INDICATION: M25.531: Bilateral wrist pain M25.532: Bilateral wrist pain ADDITIONAL CLINICAL INFORMATION: Ordering Provider Reason For Exam: pain (accession [id number]), pain (accession [id number]), pain (accession [id number]), Pain (accession [id number]) COMPARISON: None. FINDINGS: Right hand: No acute [...] and ulnocarpal joint space narrowing with near txmp-cv-uzsh contact and associated subchondral sclerosis. Bone density and texture are normal. No soft tissue swelling. Procedure Note Anastasiia Garcia MD - 12/30/2023 PROCEDURE: XR WRIST RIGHT 3VW OR MORE, XR HAND LEFT 3VW OR MORE, XRHAND RIGHT 3VW OR MORE, XR WRIST LEFT 3VW OR MORE, DATE/TIME OF EXAM:12/30/2023 12:20 PM, LOCATION [facility] INDICATION: M25.531: Bilateral wrist pain M25.532: Bilateral wrist pain ADDITIONAL CLINICAL INFORMATION: Ordering Provider Reason For Exam: pain (accession [id number]), pain (accession [id number]), pain (accession [id number]), Pain (accession [id number]) COMPARISON: None. FINDINGS: Right hand: No acute [...] and ulnocarpal joint space narrowing with near hxws-lh-ulon contact and associated subchondral sclerosis. Bone density [...] ultrasound. Report dictated by George Martinez MD (resident services supervisor). Anastasiia Solis MD have personally reviewed and interpreted this examination/study. > Interpreting Provider: Anastasiia Garcia MD on 49:08 PM Du Hall MD DIAGNOSTIC IMAGING O RDERABLES * XR WRIST LEFT 3VW OR MORE (12/30/2023 12:19 PM FINANCIAL ADMINISTRATION OFFICER) Anatomical Region Laterality Modality Wrist / Hand Radiographic Steph ging 12/30/2023 2:57 PM FINANCIAL ADMINISTRATION OFFICER Impressions 12/30/2023 9:08 PM FINANCIAL ADMINISTRATION OFFICER IMPRESSION: 1.Right hand: Mild arthritis. 2.Left hand: Moderate to severe arthritis. 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 5.Soft tissue mass within the dorsal aspect of the wrist. Consider further characterization with cross-sectional imaging and/or ultrasound. Report dictated by George Martinez MD (resident services supervisor). Anastasiia Solis MD have personally reviewed and interpreted this examination/study. > Interpreting Provider: Anastasiia Garcia MD on 12/30/2023 9:08 PM Narrative 12/30/2023 9:08 PM FINANCIAL ADMINISTRATION OFFICER PROCEDURE: XR WRIST RIGHT 3VW OR MORE, XR HAND LEFT 3VW OR MORE, XR HAND RIGHT 3VW OR MORE, XR WRIST LEFT 3VW OR MORE, DATE/TIME OF EXAM: 12/30/2023 12:20 PM, LOCATION [facility] INDICATION: M25.531: Bilateral wrist pain M25.532: Bilateral wrist pain ADDITIONAL CLINICAL INFORMATION: Ordering Provider Reason For Exam: pain (accession [id number]), pain (accession [id number]), pain (accession [id number]), Pain (accession [id number]) COMPARISON: None. FINDINGS: Right hand: No acute [...] and ulnocarpal joint space narrowing with near kydb-co-pvmw contact and associated subchondral sclerosis. Bone density and texture are normal. No soft tissue swelling. Procedure Note Anastasiia Garcia MD - 12/30/2023 PROCEDURE: XR WRIST RIGHT 3VW OR MORE, XR HAND LEFT 3VW OR MORE, XRHAND RIGHT 3VW OR MORE, XR WRIST LEFT 3VW OR MORE, DATE/TIME OF EXAM:12/30/2023 12:20 PM, LOCATION [facility] INDICATION: M25.531: Bilateral wrist pain M25.532: Bilateral wrist pain ADDITIONAL CLINICAL INFORMATION: Ordering Provider Reason For Exam: pain (accession [id number]), pain (accession [id number]), pain (accession [id number]), Pain (accession [id number]) COMPARISON: None. FINDINGS: Right hand: No acute [...] and ulnocarpal joint space narrowing with near gwpp-gp-bmve contact and associated subchondral sclerosis. Bone density [...] ultrasound. Report dictated by George Martinez MD (resident services supervisor). I, Anastasiia Garcia MD have personally reviewed and interpreted this examination/study. > Interpreting Provider: Anastasiia Garcia MD on 49:08 PM Du Hall MD DIAGNOSTIC IMAGING O [facility] Care Teams Executive Producer Relationship Specialty Start Date End Date Brandi Lopez MD [address] [place] [address] PCP - General 05/26/22
--- OUTSIDE RECORDS SUMMARY | 2025-01-10 08:28 | XMS_ITS | Referral Summary ---
Author Organization [facility] Address [address] [place] [address] Care Team Providers Care Smt Operator Name Role Phone Brandi Lopez MD Primary Care Provider Source Comments [facility],non-owned Affiliates and Associated Physician Practices is amultiple site organization consisting of ambulatory clinics and hospital sitesin [place], [place], [place] and [place]. This disclosure is being madepursuant to the Care Everywhere program and may not contain all information available regarding this patient. Last updated 18.[facility] Allergies No known active allergies Medications * Be aware that medications may not be up to date on this document. Alwaysverify current medications with the patient. 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
--- OUTSIDE RECORDS SUMMARY | 2025-01-10 08:28 | XMS_ITS | CONTINUITY OF CARE DOCUMENT ---
Author Name judith wong Address Unknown Organization [facility] Address [address] [place] [address] Phone [phone] Care Team Providers Care Film Technician Name Role Phone NADIRA BAY MD Unavailable [phone] NADIRA BAY MD Unavailable INSURANCE PROVIDERS Payer name Policy type / Coverage type [place] red green party ID [facility] [id number]
--- OUTSIDE RECORDS SUMMARY | 2025-01-10 08:28 | XMS_ITS | Patient Health Record ---
Author Organization [facility] Address [address] [place] [address] Support Name Relationship Address Phone Jori Jimenez Jr Guarantor Unknown Reason For Referral No Information Plan Of Treatment No Information Insurance Providers Payer Name Payer Address Payer Phone Subscriber Number Group Number Insured Name Patient Relationship to Insured Coverage Start Date Coverage End Date [facility] [address] [place] [phone] [id number] Jori Jimenez Jr Self - patient is the insured 5
--- NOTE | 2025-01-10 10:00 | P.PCNPFT_ITS ---
PFT Procedure Performed PFT Procedure Performed Plethysmography (Lung Vol) Diffusing Cap (DLCO) Flow Vol Loop Spirometry w/o Bronchodil PFT Interpretation Lung volumes were measured with the body plethysmography method. The elevated FRC and RV are indicative of air trapping. The remaining lung volumes are u nremarkable. Spirometry showed diminished expiratory flow rates and a diminished FEV1 to FVC ratio 49%, indicative of obstructive airway disease. Lung diffusion capacity is moderately reduced at 60% predicted. This diminished lung diffusion capacity coupled with a normal alveolar volume may indicate emphysema with preserved lung volumes, anemia or pulmonary vascular abnormality. Clinical correlation advised. The flow-volume loop is consistent with emphysema. No post bronchodilator study conducted. Impression: Moderate obstructive airway disease with evidence of air trapping. Moderately reduced lung diffusion capacity.
== END 2025-01-10 08:16 | disposition home or self-care (01) ==
LOC: ANHPFT 08:17
PROVIDERS: PCP Family Medicine; Visit Provider Family Medicine
DX: R94.2 Abnormal results of pulmonary function studies (principal); J98.8 Other specified respiratory disorders
CPT/HCPCS: 94375; 94726; 94729